=== PATIENT | female | born 1955 | race Caucasian/White ===

== ENCOUNTER 2020-07-31 17:42 | Inpatient (IN) | payer BC, OTHER, SELFPAY ==
[~2020-07-31] VITALS: Ht 167.6 cm; Wt 95.3 kg
[2020-07-31] VITALS: BP_SYST 151
[2020-07-31 17:42] VITALS: BP_SYST 143
[2020-07-31 20:09] LABS: BASOPHILS % (AUTO) 0.2 % (0.0-2.0); EOSINOPHILS % (AUTO) 0.3 % (0.0-4.0); HEMATOCRIT 40.9 % (36-48); HEMOGLOBIN 13.4 g/dL (12.0-16.0); LYMPHOCYTES # (AUTO) 1.3 K/uL (1.0-5.5); LYMPHOCYTES % (AUTO) 8.7 % (20.5-51.5); MEAN CORPUSCULAR HEMOGLOBIN 29 pg (27-31); MEAN CORPUSCULAR HGB CONC 33 % (32-36); MEAN CORPUSCULAR VOLUME 89 fL (79.0-98.0); MONOCYTES # (AUTO) 0.8 K/uL (0.0-1.0); NEUTROPHILS # (AUTO) 12.8 K/uL (1.8-7.7); NEUTROPHILS % (AUTO) 85.8 % (40.0-70.0); PLATELET COUNT (AUTO) 246 K/uL (130-430); RED CELL DISTRIBUTION WIDTH 13.7 % (9.0-15.0)
[2020-07-31 20:35] LABS: INR 0.9 (0.8-1.2); PROTHROMBIN TIME 9.3 SECS (9.5-12.5)
[2020-07-31] MEDS ORDERED: HYDROcodone/ACETAMIN 5-325 MG TAB (NORCO/ VICODIN) PO ONE (20:45)
[2020-07-31] MEDS ORDERED: ONDANSETRON HCL 4 MG/2 ML VIAL IVP ONE (20:45)
[2020-07-31] MEDS ORDERED: MORPHINE 4 MG/ML INJ. SYRINGE IVP ONE (20:45)
[2020-07-31 21:03] LABS: POTASSIUM 3.9 mmol/L (3.5-5.1)
[2020-07-31 21:04] LABS: ALBUMIN 3.9 g/dL (3.4-4.8); CREATININE 0.74 mg/dL (0.55-1.30); TOTAL BILIRUBIN 0.3 mg/dL (0.0-1.0)
[2020-07-31] MEDS ORDERED: NALOXONE HCL 0.4 MG/ML AMP (NARCAN) IVP PRN (22:15)
[2020-07-31] MEDS: amLODIPine BESYLATE 10 MG TABLET PO SCH (22:15)
[2020-07-31 22:23] LABS: BILIRUBIN,URINE NEGATIVE (NEGATIVE); BLOOD, URINE NEGATIVE (NEGATIVE); COLOR,URINE YELLOW (YELLOW); GLUCOSE,URINE NEGATIVE (NEGATIVE); KETONES,URINE NEGATIVE (NEGATIVE); LEUKOCYTE ESTERASE ,URINE NEGATIVE (NEGATIVE); NITRITE, URINE NEGATIVE (NEGATIVE); PROTEIN URINE NEGATIVE (NEGATIVE); UROBILINOGEN,URINE 0.2 (0.2-1.0)
[2020-07-31 22:45] LABS: CLARITY/URINE SLIGHTLY HAZY (CLEAR)
[2020-07-31 23:14] VITALS: BP_SYST 151
[2020-08-01] MEDS: HYDROmorphone 1 MG INJ. 1 MG/ML CARTRIDGE IVP PRN ×2 (02:37→20:15)
[2020-08-01 08:45] VITALS: BP_SYST 147
[2020-08-01] MEDS: amLODIPine BESYLATE 10 MG TABLET PO SCH (09:00)
[2020-08-01] MEDS ORDERED: NALOXONE HCL 0.4 MG/ML AMP (NARCAN) IVP PRN (10:00)
[2020-08-01] MEDS: HYDROcodone/ACETAMIN 5-325 MG TAB (NORCO/ VICODIN) PO PRN ×2 (10:10→14:50)
[2020-08-01 12:20] VITALS: BP_SYST 125
[2020-08-01 16:00] VITALS: BP_SYST 124
[2020-08-01] MEDS: ENOXAPARIN SODIUM 40 MG/0.4 ML SYRINGE SUBCUT SCH (20:22)
[2020-08-02 00:15] VITALS: BP_SYST 150
[2020-08-02] MEDS: HYDROmorphone 1 MG INJ. 1 MG/ML CARTRIDGE IVP PRN ×2 (02:41→06:07)
[2020-08-02 08:00] VITALS: BP_SYST 139
[2020-08-02] MEDS: amLODIPine BESYLATE 10 MG TABLET PO SCH (09:00)
[2020-08-02] MEDS ORDERED: POLYMYXIN 500,000/BACIT.10,000 UNITS in NS IRR 1 L IR ONE (11:32)
[2020-08-02] MEDS ORDERED: NALOXONE HCL 0.4 MG/ML AMP (NARCAN) IVP PRN ×2 (12:30)
[2020-08-02] MEDS ORDERED: HYDROmorphone 2 MG/ML VIAL IVP PRN (12:30)
[2020-08-02] MEDS ORDERED: ONDANSETRON HCL 4 MG/2 ML VIAL IVP PRN (12:30)
[2020-08-02] MEDS ORDERED: LR 1,000 ML IV SCH (12:30)
[2020-08-02] MEDS ORDERED: HYDROmorphone 1 MG INJ. 1 MG/ML CARTRIDGE IVP PRN ×2 (12:30)
[2020-08-02 13:45] VITALS: BP_SYST 131
[2020-08-02 14:07] VITALS: BP_SYST 123
[2020-08-02 19:50] VITALS: BP_SYST 115
[2020-08-02] MEDS: ENOXAPARIN SODIUM 40 MG/0.4 ML SYRINGE SUBCUT SCH (21:40)
[2020-08-03] VITALS: BP_SYST 128
[2020-08-03] MEDS: ONDANSETRON HCL 4 MG/2 ML VIAL IVP PRN ×2 (05:02→21:11)
[2020-08-03] MEDS: HYDROcodone/ACETAMIN 5-325 MG TAB (NORCO/ VICODIN) PO PRN ×2 (05:03→21:13)
[2020-08-03 08:00] VITALS: BP_SYST 130
[2020-08-03] MEDS: amLODIPine BESYLATE 10 MG TABLET PO SCH (08:41)
[2020-08-03 11:26] VITALS: BP_SYST 129
[2020-08-03 15:39] VITALS: BP_SYST 121
[2020-08-03 19:00] VITALS: BP_SYST 124
[2020-08-03 20:00] VITALS: BP_SYST 124
[2020-08-03] MEDS: ENOXAPARIN SODIUM 40 MG/0.4 ML SYRINGE SUBCUT SCH (21:10)
[2020-08-04] VITALS: BP_SYST 126
[2020-08-04] MEDS: HYDROcodone/ACETAMIN 5-325 MG TAB (NORCO/ VICODIN) PO PRN ×3 (03:47→15:09)
[2020-08-04 08:00] VITALS: BP_SYST 117
[2020-08-04 11:32] VITALS: BP_SYST 132
[2020-08-04] MEDS: ONDANSETRON HCL 4 MG/2 ML VIAL IVP PRN (14:54)
[2020-08-04 15:27] VITALS: BP_SYST 119
[2020-08-04 17:31] VITALS: BP_SYST 127
== END 2020-08-04 18:08 | disposition short-term general hospital (02) | DRG 494 ==
LOC: SED 17:42 → SMU 19:59
PROVIDERS: ADMIT Family Medicine; ATTEND Family Medicine
PROC: 0QSH04Z Reposition Left Tibia with Internal Fixation Device, Open Approach (ICD-10-PCS; principal; 2020-08-02 09:10)
DX: S82.142A Displaced bicondylar fracture of left tibia, initial encounter for closed fracture (principal); I10 Essential (primary) hypertension; S82.452A Displaced comminuted fracture of shaft of left fibula, initial encounter for closed fracture; Z20.822 Contact with and (suspected) exposure to COVID-19; W11.XXXA Fall on and from ladder, initial encounter; Y92.009 Unspecified place in unspecified non-institutional (private) residence as the place of occurrence of the external cause; Y93.89 Activity, other specified; Y99.8 Other external cause status
CPT/HCPCS: 36415; 71045; 73564; 73590-TC; 76001; 80053; 81003; 85025; 85610-TC; 85730-TC; 86886; 86900; 86901; 87081; 93005; 94010; J1170; J1650; J2405; J7120